=== PATIENT | female | born 1990 ===

== ENCOUNTER 2018-03-11 06:04 | Day surgery (SDC) | payer OTHER ==
[~2018-03-11] VITALS: Ht 165.1 cm; Wt 65.3 kg
[2018-03-11] VITALS (10 sets, daily range): BP systolic 102–124; BP diastolic 61–74
[~2018-03-11 06:04] MED LIST: Clindamycin 600mg 50 ML IV ONE; MULTIVITAMINS1 EA14 PO; celeBREX 200mg Cap **SURGERY PATIENTS ONLY ORAL ONE; oxyCONTIN 20mg tab ORAL ONE
[2018-03-11] MEDS ORDERED: Midazolam 2mg/2ml Inj ONE (07:08)
[2018-03-11] MEDS ORDERED: fentaNYL 100 mcg/2 mL IV ONE (07:08)
[2018-03-11] MEDS ORDERED: Propofol 200mg/20ml IV ONE (07:09)
[2018-03-11] MEDS ORDERED: Lidocaine 1% MPF 10mg/ml 5ml ONE (07:09)
[2018-03-11] MEDS ORDERED: Ketorolac 30mg Inj ONE ×2 (07:09→07:14)
[2018-03-11] MEDS ORDERED: Morphine Sulfate PF 10 ML ONE (07:14)
[2018-03-11] MEDS ORDERED: Lidocaine 1% 10mg/ml/Epi 0.005mg/ml 30ml vial INJ ONE (07:14)
[2018-03-11] MEDS ORDERED: Kenalog-40 1ml Vial ONE (07:14)
[2018-03-11] MEDS ORDERED: Bupivacaine 0.25% Inj 30ml INJ ONE (07:15)
[2018-03-11] MEDS ORDERED: EPINEPHrine 1mg/1ml Amp ONE (07:15)
[2018-03-11] MEDS ORDERED: LR 1000ml ONE (07:30)
[2018-03-11] MEDS ORDERED: NS Irrig 4000ml IRRIG ONE (07:30)
[2018-03-11] MEDS ORDERED: Sterile Water Irrig 1000ml IRRIG ONE (07:30)
--- NOTE | 2018-03-11 07:32 | Operative Note - PDOC ---
Operative Note Operative Note Pre-op Diagnosis: right knee meniscus tear Procedure: see op report Post-op Diagnosis: same as pre-op plus Operative Findings: consistent w/pre-op dx studies Anesthesia: regional Specimen: none Complications: none Condition: stable Estimated Blood Loss: none Implant(s) used?: No Akash Daniels MD Mar 11, 2018 07:32
--- NOTE | 2018-03-11 07:32 | Pre-Procedure Note/Attestation ---
Pre-Procedure Note/Attestation Complete Prior to Procedure Planned Procedure: right Procedure Narrative: knee arthroscopy, possible menectomy Indications for Procedure Pre-Operative Diagnosis: right knee meniscus tear Attestation I attest that I discussed the nature of the procedure; its benefits; risks and complications; and alternatives (and the risks and benefits of such alternatives ), prior to the procedure, with the patient (or the patient's legal player services representative). I attest that, if there was a reasonable possibility of needing a blood transfusion, the patient (or the patient's legal player services representative) was given the [facility] standardized written summary, pursuant to the [place] Blood Safety Act ([place] Health and Safety Code # 1645, as amended). I attest that I re-evaluated the patient just prior to the surgery and that there has been no change in the patient's H&P, except as documented below: Akash Daniels MD Mar 11, 2018 07:32
[2018-03-11] MEDS ORDERED: LR 1000ml 1,000 ML IVLG SCH (07:57)
--- NOTE | 2018-03-11 07:57 | Anethesia Preoperative Eval ---
Anesthesia Pre-op PMH/ROS General Date of Evaluation: Mar 11, 2018 Time of Evaluation: 07:20 Anesthesiologist: Charla ASA Score: ASA 2 Mallampati Score Class I : Soft palate, uvula, fauces, pillars visible Class II: Soft palate, uvula, fauces visible Class III: Soft palate, base of uvula visible Class IV: Only hard plate visible Mallampati Classification: Class II Surgeon: Jeremiah Diagnosis: R knee pain Surgical Procedure: R knee scope Anesthesia History: none Social History: current smoker Family History: no anesthesia problems Allergies: Coded Allergies: AMOXICILLIN (Verified Allergy, Severe, 03/10/18) SKIN RASH Past Medical History Cardiovascular: Denies: HTN, CAD, [place], valve dz, arrhythmia, other Pulmonary: Denies: asthma, COPD, JAYDEN, other Gastrointestinal/Genitourinary: Reports: GERD; Denies: CRI, ESRD, other Neurologic/Psychiatric: Denies: dementia, CVA, depression/anxiety, TIA, other Endocrine: Denies: DM, hypothyroidism, steroids, other HEENT: Denies: cataract (L), cataract (R), glaucoma, NATIVE (L), NATIVE (R), other Hematology/Immune: Denies: anemia, DVT, bleeding disorder, other Musculoskeletal/Integumentary: Denies: OA, RA, DJD, DDD, edema, other PMH Narrative: as above PSxH Narrative: T&A Anesthesia Pre-op Phys. Exam Physician Exam Last Vital Signs Date Time Temp Pulse Resp B/P (MAP) Pulse Ox O2 Delivery O2 Flow Rate FiO2 03/11/18 07:03 97.9 55 20 115/64 (81) 98 97.9 03/11/18 06:42 Room Air Constitutional: NAD Neurologic: CN 2-12 intact Cardiovascular: RRR, no M/R/G Respiratory: CTA Gastrointestinal: S/NT/ND Airway Exam Mallampati Score: Class II Neck: flexible ROM: full Teeth: intact Dentures: no upper, no lower Anesthesia Pre-op A/P Labs see chart Urine Test Test 03/11/18 06:15 Urine HCG, Qualitative Negative (NEGATIVE) Studies Pre-op Studies: EKG - NSR Risk Assessment & Plan Assessment: ASA 2 Plan: GA wth LMA Status Change Before Surgery: No Pre-Antibiotics Drug: Ancef 1 gr. Given Within 1 Hr of Incision: Yes Time Given: 07:42 Ken Dunham MD Mar 11, 2018 07:57
[2018-03-11] MEDS ORDERED: fentaNYL 100 mcg/2 mL IV PRN (08:00)
[2018-03-11] MEDS ORDERED: Ketorolac 30mg Inj IV PRN (08:00)
--- NOTE | 2018-03-11 08:17 | Immediate Post-Op Evaluation ---
Immediate Post-Op Evalulation Immediate Post-Op Evalulation Procedure: R knee arthroscopy, meniscectomy Date of Evaluation: Mar 11, 2018 Time of Evaluation: 08:15 IV Fluids: 700 Blood Products: none Estimated Blood Loss: min Urinary Output: none Blood Pressure Systolic: 124 Blood Pressure Diastolic: 72 Pulse Rate: 86 Respiratory Rate: 20 O2 Sat by Pulse Oximetry: 99 Temperature (Fahrenheit): 97.6 Pain Score (1-10): 1 Nausea: No Vomiting: No Complications none Patient Status: awake, patent, none Hydration Status: adequate Ken Dunham MD Mar 11, 2018 08:16
--- NOTE | 2018-03-11 11:02 | 48 Hour Post Anesthesia Eval ---
Post Anesthesia Evaluation Procedure: R knee arthroscopy, meniscectomy Date of Evaluation: Mar 11, 2018 Time of Evaluation: 11:01 Blood Pressure Systolic: 104 0: 62 Pulse Rate: 62 Respiratory Rate: 18 Temperature (Fahrenheit): 97.8 O2 Sat by Pulse Oximetry: 98 Airway: patent Nausea: No Vomiting: No Pain Intensity: 1 Hydration Status: adequate Cardiopulmonary Status: stable Mental Status/LOC: patient returned to baseline Follow-up Care/Observations: n/a Post-Anesthesia Complications: none Follow-up care needed: ready to discharge Ken Dunham MD Mar 11, 2018 11:02
[2018-03-11] MEDS ORDERED: HYDROmorphone 1mg/ml Carpuject SUBQ PRN (15:00)
[2018-03-11] MEDS ORDERED: Tylenol #3 tab (300mg/30mg) ORAL PRN (15:00)
[2018-03-11] MEDS ORDERED: Norco 5mg/325mg tab ORAL PRN (15:00)
[2018-03-11] MEDS ORDERED: D5 1/2NS 1,000 ML IV SCH (15:00)
--- NOTE | 2018-03-11 19:31 | Operative Note - Dictated ---
DATE OF OPERATION: 03/11/2018 PREOPERATIVE DIAGNOSES: 1. Right knee medial collateral ligament sprain. 2. Right knee intrameniscal degeneration of the posterior horn medial meniscus. 3. Medial patellar facet chondral damage. POSTOPERATIVE DIAGNOSES: 1. Right knee medial collateral ligament sprain. 2. Right knee intrameniscal degeneration of the posterior horn medial meniscus. 3. Medial patellar facet chondral damage. PROCEDURE: 1. Right knee diagnostic arthroscopy. 2. Right knee medial, lateral, patellofemoral synovectomy. SURGEON: Akash Daniels M.D. ANESTHESIA: MAC. INDICATION FOR PROCEDURE: The patient is a pleasant female who sustained a significant injury to the knee. She was diagnosed with medial collateral ligament sprain. She still has significant pain and symptoms along the medial joint line. MRI showed some intrameniscal degeneration of the posterior horn of the medial meniscus. There was concern that she may have a tear or some chondral damage that may continued symptoms. Given that she failed conservative treatment, she elected to undergo right knee diagnostic arthroscopy with possible meniscectomy, synovectomy, chondroplasty based on intraoperative findings. Risks, limitations, expectations, and complications procedure were discussed in detail. All questions addressed. DESCRIPTION OF PROCEDURE: After informed consent was obtained, the patient was taken to the operating room and placed supine under monitored anesthesia control. A tourniquet was applied on right proximal thigh. Right leg was prepped and draped in a sterile manner. Time-out was performed. Ancef was administered. An Esmarch was used to exsanguinate the extremity. Inferolateral stab incision was then made. Trocar was introduced into the knee joint. Of note, there was significant resistance due to scar tissue in the lateral gutter. The camera was placed in the patellofemoral compartment. There was hypertrophic fat pad making visualization of the patellofemoral compartment difficult. Medial compartment was entered. There was significant hypertrophic synovium fat pad making visualization of the anterior horn of the medial meniscus difficult. A medial working portal was established. Synovectomy of the medial compartment, intercondylar notch, and lateral compartment were performed. This allowed better visualization once the scar tissue was removed. At that point, the medial meniscus was probed in its entirety to make sure that there is no tahira tear, particularly on the undersurface of the middle body. Once that was done, the knee was taken through range of motion to see if there was any evidence of chondral damage. There was mild grade 1 chondral damage in the distal medial femoral condyle, but no gross chondral flaps. ACL was probed, noted to be intact. Lateral compartment was entered, free from the meniscal chondral damage. The camera was repositioned in the patellofemoral compartment. Synovectomy and excision of the remaining fat pad was performed. Once that was done, the instruments were removed. Portal sites were closed with Monocryl sutures. Steri-Strips and a sterile dressing were applied. The patient was awoken and taken to recovery room with stable vital signs. ESTIMATED BLOOD LOSS: None. COMPLICATIONS: None. SPECIMENS: None. Akash Daniels M.D. DR: JEOVANNY JOB#: [id number] CC: DAILY
== END 2018-03-11 09:50 | disposition home or self-care (01) ==
LOC: SUR 06:04
DX: S83.411A Sprain of medial collateral ligament of right knee, initial encounter (principal); M23.321 Other meniscus derangements, posterior horn of medial meniscus, right knee; M94.9 Disorder of cartilage, unspecified
CPT/HCPCS: 29876; 81025; J0171; J0690; J1885; J2250; J2274; J2405; J2704; J3010; J3301; J3490; J7120; 94003; 94150

== ENCOUNTER 2018-09-09 06:31 | Day surgery (SDC) | payer OTHER ==
[2018-09-09] VITALS (11 sets, daily range): BP systolic 106–127; BP diastolic 58–81
[~2018-09-09] VITALS: Ht 167.6 cm; Wt 65.3 kg
[~2018-09-09 06:31] MED LIST changes: +ACYCLOVIR200 MG ORAL; -Clindamycin 600mg 50 ML IV ONE; +Clindamycin 600mg/D5W 50ml IV ONE
--- NOTE | 2018-09-09 08:12 | Pre-Procedure Note/Attestation ---
Pre-Procedure Note/Attestation Complete Prior to Procedure Planned Procedure: right Procedure Narrative: shoulder arthroscopy, sad Indications for Procedure Pre-Operative Diagnosis: right shoulder impingment Attestation I attest that I discussed the nature of the procedure; its benefits; risks and complications; and alternatives (and the risks and benefits of such alternatives ), prior to the procedure, with the patient (or the patient's legal outreach representative). I attest that, if there was a reasonable possibility of needing a blood transfusion, the patient (or the patient's legal outreach representative) was given the [facility] standardized written summary, pursuant to the [place] Blood Safety Act ([place] Health and Safety Code # 1645, as amended). I attest that I re-evaluated the patient just prior to the surgery and that there has been no change in the patient's H&P, except as documented below: Akash Daniels MD Sep 09, 2018 08:12
--- NOTE | 2018-09-09 08:12 | Operative Note - PDOC ---
Operative Note Operative Note Pre-op Diagnosis: right shoulder impingment Procedure: see op report Post-op Diagnosis: same as pre-op plus Operative Findings: consistent w/pre-op dx studies Anesthesia: regional Specimen: none Complications: none Condition: stable Estimated Blood Loss: none Implant(s) used?: No Akash Daniels MD Sep 09, 2018 08:12
[2018-09-09] MEDS ORDERED: fentaNYL 100 mcg/2 mL IV ONE (08:38)
[2018-09-09] MEDS ORDERED: Midazolam 2mg/2ml Inj ONE (08:38)
[2018-09-09] MEDS ORDERED: Propofol 200mg/20ml IV ONE (08:40)
[2018-09-09] MEDS ORDERED: Lidocaine 1% MPF 10mg/ml 5ml ONE (08:40)
[2018-09-09] MEDS ORDERED: Ketorolac 30mg Inj ONE (08:40)
[2018-09-09] MEDS ORDERED: Ropivacaine 5mg/ml Vial 30ml INJ ONE (08:42)
[2018-09-09] MEDS ORDERED: Bupivacaine w/Epi 0.5% 30ml Vial INJ ONE (09:38)
[2018-09-09] MEDS ORDERED: EPINEPHrine 1mg/1ml Amp ONE (09:38)
[2018-09-09] MEDS ORDERED: Kenalog-40 1ml Vial ONE (09:38)
[2018-09-09] MEDS ORDERED: Sterile Water Irrig 1000ml IRRIG ONE (10:00)
[2018-09-09] MEDS ORDERED: LR 1000ml ONE (10:00)
[2018-09-09] MEDS ORDERED: NS Irrig 4000ml IRRIG ONE (10:00)
[2018-09-09] MEDS ORDERED: TransDerm Scop 1mg/72HR Patch TDERMAL ONE ×2 (10:04→11:00)
[2018-09-09] MEDS ORDERED: ePHEDrine 50mg/ml Inj ONE (10:37)
[2018-09-09] MEDS ORDERED: Sodium Chloride 10ml vial INJ ONE (10:37)
--- NOTE | 2018-09-09 10:47 | Anethesia Preoperative Eval ---
Anesthesia Pre-op PMH/ROS General Date of Evaluation: Sep 09, 2018 Time of Evaluation: 09:35 Anesthesiologist: Charla ASA Score: ASA 2 Mallampati Score Class I : Soft palate, uvula, fauces, pillars visible Class II: Soft palate, uvula, fauces visible Class III: Soft palate, base of uvula visible Class IV: Only hard plate visible Mallampati Classification: Class II Surgeon: Jeremiah Diagnosis: R shoulder pain Surgical Procedure: R shoulder scope Anesthesia History: none Family History: no anesthesia problems Allergies: Coded Allergies: AMOXICILLIN (Verified Allergy, Severe, 03/10/18) SKIN RASH Medications: see eMAR Patient NPO?: Yes Past Medical History Cardiovascular: Denies: HTN, CAD, [place], valve dz, arrhythmia, other Pulmonary: Denies: asthma, COPD, JAYDEN, other Gastrointestinal/Genitourinary: Reports: GERD - mild; Denies: CRI, ESRD, other Neurologic/Psychiatric: Denies: dementia, CVA, depression/anxiety, TIA, other Endocrine: Denies: DM, hypothyroidism, steroids, other HEENT: Denies: cataract (L), cataract (R), glaucoma, [place] (L), [place] (R), other Hematology/Immune: Denies: anemia, DVT, bleeding disorder, other Musculoskeletal/Integumentary: Denies: OA, RA, DJD, DDD, edema, other PMH Narrative: as above PSxH Narrative: Knee scope Anesthesia Pre-op Phys. Exam Physician Exam Last Vital Signs Date Time Temp Pulse Resp B/P (MAP) Pulse Ox O2 Delivery O2 Flow Rate FiO2 09/09/18 07:10 97.3 58 18 113/68 99 Room Air Constitutional: NAD Neurologic: CN 2-12 intact Cardiovascular: RRR, no M/R/G Respiratory: CTA Gastrointestinal: S/NT/ND Airway Exam Mallampati Score: Class II MO: full Neck: flexible ROM: full Teeth: intact Dentures: no upper, no lower Anesthesia Pre-op A/P Labs see chart Urine Test Test 09/09/18 06:50 Urine HCG, Qualitative Negative (NEGATIVE) Studies Pre-op Studies: EKG - NSR Risk Assessment & Plan Assessment: ASA 2 Plan: GA wth LMA R brachial plexus block for post operative pain control Status Change Before Surgery: No Pre-Antibiotics Drug: Ancef 1gr. Given Within 1 Hr of Incision: Yes Time Given: 10:40 Ken Dunham MD Sep 09, 2018 10:47
[2018-09-09] MEDS ORDERED: LR 1000ml 1,000 ML IVLG SCH (10:48)
[2018-09-09] MEDS ORDERED: Meperidine 50mg/ml Inj(FOR RIGORS ONLY) IV PRN (11:00)
[2018-09-09] MEDS ORDERED: Ketorolac 30mg Inj IV PRN (11:00)
[2018-09-09] MEDS ORDERED: Midazolam 2mg/2ml Inj IVP PRN (11:00)
[2018-09-09] MEDS ORDERED: Metoclopramide 10mg/2ml Inj IVP PRN (11:00)
[2018-09-09] MEDS ORDERED: DiphenhydrAMINE 50mg/ml Inj IVP PRN (11:00)
--- NOTE | 2018-09-09 12:05 | Immediate Post-Op Evaluation ---
Immediate Post-Op Evalulation Immediate Post-Op Evalulation Procedure: R shoulder arthroscopy subacromion decompression,RC repair Date of Evaluation: Sep 09, 2018 Time of Evaluation: 12:04 IV Fluids: 1000 Blood Products: none Estimated Blood Loss: <50 Urinary Output: none Blood Pressure Systolic: 121 Blood Pressure Diastolic: 69 Pulse Rate: 64 Respiratory Rate: 20 O2 Sat by Pulse Oximetry: 99 Temperature (Fahrenheit): 97.4 Pain Score (1-10): 1 Nausea: No Vomiting: No Complications none Patient Status: reacts, patent, none Hydration Status: adequate Ken Dunham MD Sep 09, 2018 12:05
--- NOTE | 2018-09-09 14:11 | 48 Hour Post Anesthesia Eval ---
Post Anesthesia Evaluation Procedure: R shoulder arthroscopy subacromion decompression,RC repair Date of Evaluation: Sep 09, 2018 Time of Evaluation: 14:10 Blood Pressure Systolic: 115 0: 74 Pulse Rate: 62 Respiratory Rate: 20 Temperature (Fahrenheit): 97.6 O2 Sat by Pulse Oximetry: 98 Airway: patent Nausea: No Vomiting: No Pain Intensity: 1 Hydration Status: adequate Cardiopulmonary Status: stable Mental Status/LOC: patient returned to baseline Follow-up Care/Observations: n/a Post-Anesthesia Complications: none Follow-up care needed: ready to discharge Ken Dunham MD Sep 09, 2018 14:11
[2018-09-09] MEDS ORDERED: D5 1/2NS 1,000 ML IV SCH (16:01)
[2018-09-09] MEDS ORDERED: Norco 5mg/325mg tab ORAL PRN (16:01)
[2018-09-09] MEDS ORDERED: HYDROmorphone 1mg/ml Carpuject SUBQ PRN (16:01)
[2018-09-09] MEDS ORDERED: Tylenol #3 tab (300mg/30mg) ORAL PRN (16:01)
--- NOTE | 2018-09-09 19:45 | Operative Note - Dictated ---
DATE OF OPERATION: 09/09/2018 PREOPERATIVE DIAGNOSES: 1. Right shoulder impingement/bursitis. 2. Right shoulder rotator cuff tear. POSTOPERATIVE DIAGNOSES: 1. High-grade right shoulder supraspinatus rotator cuff tear. 2. Subacromial impingement/bursitis. PROCEDURES: 1. Right shoulder diagnostic arthroscopy with extensive debridement. 2. Right shoulder subacromial decompression bursectomy. 3. Right shoulder arthroscopic rotator cuff repair. SURGEON: Akash Daniels M.D. ANESTHESIA: Interscalene general. INDICATION FOR PROCEDURE: The patient is a pleasant woman who was progressive right shoulder pain. She had failed conservative treatment, elected to undergo right shoulder arthroscopy decompression. She was noted to have a partial tear of this rotator cuff. Based on the extent of the tear for the cuff, possible fixation with debridement will be performed. Risks, limitations, expectations, and complications to the procedure were discussed in detail. All questions addressed. DESCRIPTION OF PROCEDURE: After informed consent was obtained, the patient was placed under general anesthesia and interscalene block. The patient was beach chair position. Right shoulder was prepped and draped in a sterile manner. Time-out was performed. Trocar was introduced into glenohumeral joint. There is no significant chondral damage. The anterior labrum and superior labrum was intact. The biceps tendon was intact. The undersurface of the rotator cuff along with the footprint of the supraspinatus has had significant fraying and tearing. The spinal needle was then placed into this area. The camera was then repositioned in the subacromial space. Acromioplasty was performed from lateral to medial and completed posterior to anterior. Once that was done, the area of concern was evaluated where she had a high-grade rotator cuff tear. Therefore, 2 mattress sutures were then placed to cinch down the footprint and recreated the footprint of the supraspinatus. Once that was done, the instruments were removed. Portal sites were closed with 3-0 Monocryl sutures. Steri-Strips and sterile dressing was applied. ESTIMATED BLOOD LOSS: None. COMPLICATIONS: None. SPECIMENS: None. IMPLANTS: One [employer] Jugger[employer]not anchor. Akash Daniels M.D. DR: SALVADOR JOB#: [id number] CC:
== END 2018-09-09 13:50 | disposition home or self-care (01) ==
LOC: SDS 06:31
DX: M75.41 Impingement syndrome of right shoulder (principal); M75.111 Incomplete rotator cuff tear or rupture of right shoulder, not specified as traumatic; K21.9 Gastro-esophageal reflux disease without esophagitis; Z88.0 Allergy status to penicillin
CPT/HCPCS: 29826; 29827; 81025; J0171; J0690; J1885; J2250; J2405; J2704; J2795; J3010; J3301; 94003; 94150; C1713